=== PATIENT | female | born 1985 | race African-American/Black ===

== ENCOUNTER 2016-11-11 08:00 | Outpatient (RCR) ==
[2014-12-18 11:11] VITALS: BMI 28.6
--- NOTE | 2016-10-25 14:43 | RS.OPPTEV2 ---
Date of Note: 10/23/16 Visit #: 1 Date of Evaluation: 10/23/16 Payer Source: Medicaid Treatment Diagnosis: Thoracic Outlet Syndrome, tingling and numbness into the UE 's. History of Condition/Mechanism of Injury:: Patient reports having tingling in her hands for a few months. Prior Level of Function.....Patient was independent with: ADL's, Self Care, Work /Vocation, Caregiving, Ambulation/Mobility, Community Integration/Access Functional Limitations: ADL's, Reaching, Pushing, Pulling, Lifting, Carrying Current Subjective/complaints:: Patient reports having symptoms in the UE's for several months. States her symptoms are not constant. States they are more common with driving, lifting, using her arms above her head. Denies any tingling or numbness in the UE's when trying to sleep. Reports she is right hand dominant. Symptoms are equal in the UE's. Reports weakness in her hands at times. Treatment Side (optional): Bilateral Medical History Medical History: Unremarkable Smoking Status: Former smoker Hx Home Medications: None Patient's Goals: Her goal is to get relief of UE symptoms. Pain Assessment - Pain Description Pain Location: neck Current Pain Intensity: 4/10 Worst Pain Intensity: 8/10 Functional Outcome Measure Neck Disability Index: 26 - G Codes & Severity Modifier G Codes & Modifier: NA Source of G Code score: NA Observation - Observation Posture: Forward Head, Rounded Shoulders, Decreased Cervical Lordosis Handedness: Right - ROM Comments: Cervical AROM is WFL's, Bilateral UE AROM is WFL's with reports of tingling in the hands with prolonged position. - Special Tests Thoracic Outlet Test: Positive Left (Orville Test), Positive Right Manufacturing Assembler Strength Left Hand Manufacturing Assembler Strength: 65 lbs. Right Hand Manufacturing Assembler Strength: 78 lbs. Dynamometer Testing Position: 2nd Position Palpation Comments:: Reports tenderness along middle to lower cervical spine with palpation. Reports no tenderness with palpation to upper traps. She does demonstrates moderate muscle tone in the upper traps. Sensation - Sensation Comments: At rest, prior to Special Tests, sensation is intact without tingling or numbness in the UE's. Additional Comments: Additional Comments: Adson's Test positive bilaterally. Interventions - Exercise/Activities/Manual Therapy Exercises/Activities: Patient instructed in stretching to ulnar nerve, median nerve, and radial nerve. Also given scalene stretch and thoracic extension with hands behind head. Manual Therapy: NA HOME EXERCISE PROGRAM: stretching to ulnar nerve, median nerve, and radial nerve. Also given scalene stretch and thoracic extension with hands behind head. - Charges Total Direct Minutes: 42 mins Total Treatment Time: 42 mins Procedures billed for this date of service:: EVAL Assessment Assessment: Patient presents to therapy with a diagnosis of Thoracic Outlet Syndrome. She presents with positive Orville and Adson's tests bilaterally. She demonstrates moderate increased muscle tone in the upper traps. She reports tingling in the hands with many daily activities such as driving and activities that involve reaching overhead or lifting. She demonstrates potential to get some relief of symptoms with thorough stretching, postural strengthening , and education to reduce and manage her symptoms. Patient Education: Education of diagnosis, Body/Joint mechanics, Home Exercise Program, Home Safety, Activity Modification, Education of Plan of Care Rehab Potential: Good Short Term Goals Goal #1: Pt to demonstrate good performance of stretching exercises. Goal to be met by: 11/01/16 Goal #2: Patient to demonstrate good postural awareness. Goal to be met by: 11/08/16 Goal #3: Muscle tone in bilateral upper traps decreased to minimal. Goal to be met by: 11/08/16 [facility] Home Goals Goal #1: Pt knows HEP and to continue w/ exercises to maintain level at discharge. Goal to be met by: 11/29/16 Goal #2: Score on Neck disability index improved to 10. Goal to be met by: 11/29/16 Goal #3: Pt able to drive community distances without tingling/numbness in UE's. Goal to be met by: 11/29/16 Goal #4: Use UE's for reaching/lifting with only occasional onset of symptoms. Goal to be met by: 11/29/16 Plan - Treatment to be Provided Procedures: Therapeutic Exercises, Therapeutic Activity, Manual Therapy, Patient Education Modalities: Electrical Stimulation, Ultrasound/Phonophoresis, Class IV Laser, Cryotherapy, Hot Packs, Mechanical Traction (cervical spine) - Treatment Plan Frequency: 3 X week Duration: 4 weeks ORDER # VISITS AND/OR THROUGH DATE: 11/29/16 - Treatment Code (1) Thoracic outlet syndrome Comments: G54.0 (2) Neck pain Comments: M54.2 (3) Numbness and tingling in both hands Comments: R20.2
--- NOTE | 2016-10-25 16:47 | RS.OPPTDN ---
Subjective Date of Note: 10/25/16 Visit #: 2 Date of Evaluation: 10/23/16 Payer Source: Medicaid Treatment Diagnosis: Thoracic Outlet Syndrome, tingling and numbness into the UE 's. Current Subjective/complaints:: Patient says she has been trying to perform stretches. Says neck pain is bilateral and tingling to both hands. C/o being tired from work. Pain Assessment - Pain Description Pain Location: neck Current Pain Intensity: 12/23 - Treatment Modality: Ultrasound Parameters/Method Applied: 1.5 w/cm2 continuous after traction to bilateral UT x 10 mins Patient Position: Sitting - Heat/Cryotherapy Treatment: Hot Pack (cervical x 20 mins supine) - Traction Treatment Method: Mechanical, Intermittent, Cervical Patient Position: Supine Amount of Force Applied: 13 Hold Time: 25 Rest Time: 5 Duration of treatment: 10 Traction Treatment Comment: 2 steps Interventions - Exercise/Activities/Manual Therapy Exercises/Activities: Reviewed HEP and explained traction Manual Therapy: NA HOME EXERCISE PROGRAM: stretching to ulnar nerve, median nerve, and radial nerve. Also given scalene stretch and thoracic extension with hands behind head. Instructed in door way stretch for pec minor. - Charges Total Direct Minutes: 12 Total Treatment Time: 42 Procedures billed for this date of service:: hp, u/s, mechanical traction, Assessment: Patient experienced relief today during and immediately following treatment. Traction was set low and will increase gradually to ease radicular symptoms. Patient Education: Education of diagnosis, Body/Joint mechanics, Home Exercise Program, Home Safety, Activity Modification, Education of Plan of Care Patient demonstrates compliance with HEP?: Yes Short Term Goals Goal #1: Pt to demonstrate good performance of stretching exercises. Goal to be met by: 11/01/16 Goal #2: Patient to demonstrate good postural awareness. Goal to be met by: 11/08/16 Goal #3: Muscle tone in bilateral upper traps decreased to minimal. Goal to be met by: 11/08/16 Shelter Goals Goal #1: Pt knows HEP and to continue w/ exercises to maintain level at discharge. Goal to be met by: 11/29/16 Goal #2: Score on Neck disability index improved to 10. Goal to be met by: 11/29/16 Goal #3: Pt able to drive community distances without tingling/numbness in UE's. Goal to be met by: 11/29/16 Goal #4: Use UE's for reaching/lifting with only occasional onset of symptoms. Goal to be met by: 11/29/16 Plan PLAN OF CARE EXPIRES ON:: 11/29/16 ORDER # VISITS AND/OR THROUGH DATE: 11/29/16 PLAN: Continue Plan of Care
--- NOTE | 2016-10-29 11:14 | RS.OPPTDN ---
Subjective Date of Note: 10/29/16 Visit #: 3 Date of Evaluation: 10/23/16 Payer Source: Medicaid Treatment Diagnosis: Thoracic Outlet Syndrome, tingling and numbness into the UE 's. Current Subjective/complaints:: Patient says traction felt good and she is happy to have it again to improve her symptoms. She says today she is only hurting at the L upper neck (points just lateral to the C4/C5 region. Pain Assessment - Pain Description Pain Location: neck Current Pain Intensity: does not rate, but says "not bad" - Treatment Modality: Ultrasound Parameters/Method Applied: continuous @ 1.5 w/cm2 x 10 mins to the L lower cerv paraspinals AFTER traction Patient Position: Sitting - Heat/Cryotherapy Treatment: Hot Pack (cervical in supine x 20 mins ) - Traction Treatment Method: Mechanical, Intermittent, Cervical Patient Position: Supine Amount of Force Applied: 15 Hold Time: 25 Rest Time: 5 Duration of treatment: 15 Traction Treatment Comment: 2 steps Interventions - Exercise/Activities/Manual Therapy Exercises/Activities: Reviewed HEP Manual Therapy: NA HOME EXERCISE PROGRAM: stretching to ulnar nerve, median nerve, and radial nerve. Also given scalene stretch and thoracic extension with hands behind head. Instructed in door way stretch for pec minor. - Charges Total Direct Minutes: 10 Total Treatment Time: 45 Procedures billed for this date of service:: hp, u/s, mechanical traction Assessment: Patient appears to luna traction well and remains pleasant about improving symptoms with PT and HEP. Patient Education: Education of diagnosis, Body/Joint mechanics, Home Exercise Program, Home Safety, Activity Modification, Education of Plan of Care Patient demonstrates compliance with HEP?: Yes Short Term Goals Goal #1: Pt to demonstrate good performance of stretching exercises. Goal to be met by: 11/01/16 Progress towards Goal:: Progressing Goal #2: Patient to demonstrate good postural awareness. Goal to be met by: 11/08/16 Progress towards Goal:: Progressing Goal #3: Muscle tone in bilateral upper traps decreased to minimal. Goal to be met by: 11/08/16 [facility] Goals Goal #1: Pt knows HEP and to continue w/ exercises to maintain level at discharge. Goal to be met by: 11/29/16 Goal #2: Score on Neck disability index improved to 10. Goal to be met by: 11/29/16 Goal #3: Pt able to drive community distances without tingling/numbness in UE's. Goal to be met by: 11/29/16 Goal #4: Use UE's for reaching/lifting with only occasional onset of symptoms. Goal to be met by: 11/29/16 Plan PLAN OF CARE EXPIRES ON:: 11/29/16 ORDER # VISITS AND/OR THROUGH DATE: 11/29/16 PLAN: Continue Plan of Care
--- NOTE | 2016-10-30 14:00 | RS.OPPTDN ---
Subjective Date of Note: 10/30/16 Visit #: 4 Date of Evaluation: 10/23/16 Payer Source: Medicaid Treatment Diagnosis: Thoracic Outlet Syndrome, tingling and numbness into the UE 's. Current Subjective/complaints:: Patient asks to increase traction poundage since it had helped yesterday. She says she is having less tightness to her neck. Pain Assessment - Pain Description Pain Location: neck Current Pain Intensity: does not rate, but says "not bad" - Treatment Modality: Ultrasound Parameters/Method Applied: continuous @ 1.5 w/cm2 x 12 mins to bilateral UT, mostly to the L C4/C5 paraspinals Patient Position: Sitting - Traction Treatment Method: Mechanical, Intermittent, Cervical Patient Position: Supine Amount of Force Applied: 17 Hold Time: 25 Rest Time: 5 Duration of treatment: 20 Traction Treatment Comment: 2 steps, increased 2 # due to request Interventions - Exercise/Activities/Manual Therapy Exercises/Activities: Reviewed HEP Manual Therapy: NA HOME EXERCISE PROGRAM: stretching to ulnar nerve, median nerve, and radial nerve. Also given scalene stretch and thoracic extension with hands behind head. Instructed in door way stretch for pec minor. - Charges Total Direct Minutes: 12 Total Treatment Time: 32 Procedures billed for this date of service:: u/s, mechanical traction Assessment: Patient arrived 30 mins late. Abbreviated session today. Patient experiencing relief with traction and eager to continue to progress treatment. Patient Education: Education of diagnosis, Body/Joint mechanics, Home Exercise Program, Home Safety, Activity Modification, Education of Plan of Care Patient demonstrates compliance with HEP?: Yes Short Term Goals Goal #1: Pt to demonstrate good performance of stretching exercises. Goal to be met by: 11/01/16 Progress towards Goal:: Progressing Goal #2: Patient to demonstrate good postural awareness. Goal to be met by: 11/08/16 Progress towards Goal:: Progressing Goal #3: Muscle tone in bilateral upper traps decreased to minimal. Goal to be met by: 11/08/16 Correction Goals Goal #1: Pt knows HEP and to continue w/ exercises to maintain level at discharge. Goal to be met by: 11/29/16 Goal #2: Score on Neck disability index improved to 10. Goal to be met by: 11/29/16 Goal #3: Pt able to drive community distances without tingling/numbness in UE's. Goal to be met by: 11/29/16 Goal #4: Use UE's for reaching/lifting with only occasional onset of symptoms. Goal to be met by: 11/29/16 Plan PLAN OF CARE EXPIRES ON:: 11/29/16 ORDER # VISITS AND/OR THROUGH DATE: 11/29/16 PLAN: Continue Plan of Care
--- NOTE | 2016-11-01 13:25 | RS.CXNS ---
Date of scheduled appointment: 11/01/16 Type: Cancel Reason for Cancel/NS: "something came up"
--- NOTE | 2016-11-04 16:26 | RS.OPPTDN ---
Subjective Date of Note: 11/04/16 Visit #: 5 Date of Evaluation: 10/23/16 Payer Source: Medicaid Treatment Diagnosis: Thoracic Outlet Syndrome, tingling and numbness into the UE 's. Current Subjective/complaints:: Patient reports traction is helping. Reports left side of neck is more sore today. States she is working on HEP. Following treatment patient reports she liked the increase in weight with cervical traction. Pain Assessment - Pain Description Pain Location: neck Current Pain Intensity: mild to mod soreness - Treatment Modality: Ultrasound Parameters/Method Applied: [id number] at 1.5w/cm2 to the bilateral cervical paraspinals and upper traps prior to traction. Patient Position: Sitting - Heat/Cryotherapy Treatment: Hot Pack ([id number] to the cervical paraspinals prior to US and TX. Patient in supine. ) - Traction Treatment Method: Mechanical, Intermittent, Cervical Patient Position: Supine Amount of Force Applied: 20# Hold Time: 20sec Rest Time: 5sec Duration of treatment: 20mins Interventions - Exercise/Activities/Manual Therapy Exercises/Activities: NA Manual Therapy: NA HOME EXERCISE PROGRAM: stretching to ulnar nerve, median nerve, and radial nerve. Also given scalene stretch and thoracic extension with hands behind head. Instructed in door way stretch for pec minor. - Charges Total Direct Minutes: 14mins Total Treatment Time: 54mins Procedures billed for this date of service:: HP, US, TX mechanical Assessment: Patient reports improvement with traction. Short Term Goals Goal #1: Pt to demonstrate good performance of stretching exercises. Goal to be met by: 11/01/16 Progress towards Goal:: Progressing Goal #2: Patient to demonstrate good postural awareness. Goal to be met by: 11/08/16 Progress towards Goal:: Progressing Goal #3: Muscle tone in bilateral upper traps decreased to minimal. Goal to be met by: 11/08/16 [facility] Goals Goal #1: Pt knows HEP and to continue w/ exercises to maintain level at discharge. Goal to be met by: 11/29/16 Goal #2: Score on Neck disability index improved to 10. Goal to be met by: 11/29/16 Goal #3: Pt able to drive community distances without tingling/numbness in UE's. Goal to be met by: 11/29/16 Goal #4: Use UE's for reaching/lifting with only occasional onset of symptoms. Goal to be met by: 11/29/16 Plan PLAN OF CARE EXPIRES ON:: 11/29/16 ORDER # VISITS AND/OR THROUGH DATE: 11/29/16 PLAN: Continue Plan of Care
--- NOTE | 2016-11-06 16:31 | RS.OPPTDN ---
Subjective Date of Note: 11/06/16 Visit #: 6 Date of Evaluation: 10/23/16 Payer Source: Medicaid Treatment Diagnosis: Thoracic Outlet Syndrome, tingling and numbness into the UE 's. Current Subjective/complaints:: Patient reports she is feeling much better. States she has stiffness in the neck but no pain or radicular symptoms in the UE 's. States increase in weight with traction has helped. Pain Assessment - Pain Description Pain Location: neck Current Pain Intensity: mild - Treatment Modality: Ultrasound Parameters/Method Applied: [id number] at 1.5w/cm2 to the bilateral cervical paraspinals. Patient Position: Supine - Heat/Cryotherapy Treatment: Hot Pack ([id number] to the cervical spine prior to US and TX. Patient in supine. ) - Traction Treatment Method: Mechanical, Intermittent, Cervical Patient Position: Supine Amount of Force Applied: 21# Hold Time: 30sec Rest Time: 5sec Duration of treatment: 20mins Interventions - Exercise/Activities/Manual Therapy Exercises/Activities: NA Manual Therapy: NA HOME EXERCISE PROGRAM: stretching to ulnar nerve, median nerve, and radial nerve. Also given scalene stretch and thoracic extension with hands behind head. Instructed in door way stretch for pec minor. - Charges Total Direct Minutes: 10mins Total Treatment Time: 50mins Procedures billed for this date of service:: HP, US, TX mechanical Assessment: Patient responding well to traction. Reports no radicular symptoms today. Short Term Goals Goal #1: Pt to demonstrate good performance of stretching exercises. Goal to be met by: 11/01/16 Progress towards Goal:: Progressing Goal #2: Patient to demonstrate good postural awareness. Goal to be met by: 11/08/16 Progress towards Goal:: Progressing Goal #3: Muscle tone in bilateral upper traps decreased to minimal. Goal to be met by: 11/08/16 Progress towards Goal:: Progressing [facility] Home Goals Goal #1: Pt knows HEP and to continue w/ exercises to maintain level at discharge. Goal to be met by: 11/29/16 Progress towards goal: Progressing Goal #2: Score on Neck disability index improved to 10. Goal to be met by: 11/29/16 Goal #3: Pt able to drive community distances without tingling/numbness in UE's. Goal to be met by: 03/17/17 Progress towards goal: Progressing Goal #4: Use UE's for reaching/lifting with only occasional onset of symptoms. Goal to be met by: 11/29/16 Plan PLAN OF CARE EXPIRES ON:: 11/29/16 ORDER # VISITS AND/OR THROUGH DATE: 11/29/16 PLAN: Continue Plan of Care
--- NOTE | 2016-11-11 09:49 | RS.OPPTDN ---
Subjective Date of Note: 11/11/16 Visit #: 7 Date of Evaluation: 10/23/16 Payer Source: Medicaid Treatment Diagnosis: Thoracic Outlet Syndrome, tingling and numbness into the UE 's. Current Subjective/complaints:: Patient says treatment has really helped. C/o stiffness today. Pain Assessment - Pain Description Pain Location: neck Current Pain Intensity: mild - Treatment Modality: Ultrasound Parameters/Method Applied: 1.5 w/cm2 continuous x 10 mins to bilateral UT after traction - Heat/Cryotherapy Treatment: Hot Pack (20 mins cervical in supine) - Traction Treatment Method: Mechanical, Intermittent, Cervical Patient Position: Supine Amount of Force Applied: 22-23 Hold Time: 30 Rest Time: 5 Duration of treatment: 20 Interventions - Exercise/Activities/Manual Therapy Exercises/Activities: Patient is performing them at home. Manual Therapy: NA HOME EXERCISE PROGRAM: stretching to ulnar nerve, median nerve, and radial nerve. Also given scalene stretch and thoracic extension with hands behind head. Instructed in door way stretch for pec minor. - Charges Total Direct Minutes: 10 Total Treatment Time: 50 Procedures billed for this date of service:: hp, mechanical traction, u/s Assessment: Patient presents with stiffness to the cervical spine. Pain is isolated to this same location. She is responding well to traction as it progresses, she is having less to no radicular symptoms. Patient Education: Education of diagnosis, Body/Joint mechanics, Home Exercise Program, Home Safety, Activity Modification, Education of Plan of Care Patient demonstrates compliance with HEP?: Yes Short Term Goals Goal #1: Pt to demonstrate good performance of stretching exercises. Goal to be met by: 11/01/16 Progress towards Goal:: Progressing Goal #2: Patient to demonstrate good postural awareness. Goal to be met by: 11/08/16 Progress towards Goal:: Progressing Goal #3: Muscle tone in bilateral upper traps decreased to minimal. Goal to be met by: 11/08/16 Progress towards Goal:: Progressing Manager Reporting Goals Goal #1: Pt knows HEP and to continue w/ exercises to maintain level at discharge. Goal to be met by: 11/29/16 Progress towards goal: Progressing Goal #2: Score on Neck disability index improved to 10. Goal to be met by: 11/29/16 Goal #3: Pt able to drive community distances without tingling/numbness in UE's. Goal to be met by: 11/29/16 Progress towards goal: Progressing Goal #4: Use UE's for reaching/lifting with only occasional onset of symptoms. Goal to be met by: 11/29/16 Plan PLAN OF CARE EXPIRES ON:: 11/29/16 ORDER # VISITS AND/OR THROUGH DATE: 11/29/16 PLAN: Continue Plan of Care
== END 2016-11-12 ==
PROVIDERS: ATTEND Surgery Vascular Surgery
DX: G54.0 Brachial plexus disorders (principal)

== ENCOUNTER 2016-11-13 15:09 | Outpatient (RCR) ==
[2014-12-18 11:11] VITALS: BMI 28.6
--- NOTE | 2016-11-13 16:17 | RS.QUICKDC ---
Discharge from PT Date of Discharge: 08/29/15 Number of Visits: 8 Reason for Discharge: Rehab goals met,reports stifness in the neck ,but no soreness or radiculopathy present today.She has good understanding of HEP,good postural awareness.She is aware of D/C plan today.
== END 2016-12-13 ==
PROVIDERS: ATTEND Surgery Vascular Surgery
DX: G54.0 Brachial plexus disorders (principal)

== ENCOUNTER 2017-05-11 09:33 | Emergency (ER) ==
[2017-05-11 09:44] VITALS: BP 118/79; TEMP 98.8; BMI 25.9
--- NOTE | 2017-05-11 09:46 | ED.PDOC ---
General ED Provider: Dr. CEDRICK PÉREZ JR Chief Complaint: Earache Stated Complaint: works at [employer] and has seen several pt with same sx-- cold sx started--sl hoarseness--sl cough and nasal sx--has bilat ear pain[ End ] 98.8 95 20 96% 118/79 5/10mucinex/otc medsEARACHE COUGH RUNNY NOSE Time Seen by Physician: 09:46 Mode of Arrival: Walk-In Information Source: Patient Exam Limitations: No limitations Primary Care Provider: LESLIE BEGUM Nursing and Triage Documentation Reviewed and Agree: No Review of Systems - Review Of Systems Constitutional: Reports: Malaise Eyes: Reports: No symptoms Ears, Nose, Mouth, Throat: Reports: Ear pain, Nose pain, Nose discharge, Throat pain Respiratory: Reports: Cough Cardiac: Reports: No symptoms GI: Reports: No symptoms : Reports: No symptoms Musculoskeletal: Reports: No symptoms Skin: Reports: No symptoms Neurological: Reports: No symptoms Endocrine: Reports: No symptoms Hematologic/Lymphatic: Reports: No symptoms All Other Systems: Other Past Medical History - Past Medical History Previously Healthy: Yes Endocrine: Reports: None Cardiovascular: Reports: None Respiratory: Reports: None Hematological: Reports: None Gastrointestinal: Reports: None Genitourinary: Reports: None Neuro/Psych: Reports: None, Anxiety (XANAX BUPROPRION) Musculoskeletal: Reports: None Cancer: Reports: None - Surgical History General Surgical History: Reports: - Family History Family History: Reports: Unknown - Social History Smoking Status: Never smoker Hx Substance Use: No Alcohol Screening: Occasionally Physical Exam - Physical Exam Appearance: Well-appearing Ill-appearing: Mild Pain Distress: Mild Eyes: GILBERTO, EOMI, Conjunctiva clear ENT: Ears normal, Nose normal, Oropharynx normal Neck: Supple Respiratory: Airway patent, Breath sounds clear, Breath sounds equal, Respirations nonlabored Cardiovascular: RRR, Pulses normal, No rub, No murmur GI/: Soft, Nontender, No masses, Bowel sounds normal, No Organomegaly Musculoskeletal: Normal strength, ROM intact, No edema, No calf tenderness Skin: Warm, Dry, Normal color Neurological: Sensation intact, Motor intact, Reflexes intact, Cranial nerves intact, Alert, Oriented Psychiatric: Affect appropriate, Mood appropriate Critical Care Note - Critical Care Note Total Time (mins): 0 Departure - Departure Time of Disposition: 09:53 Disposition: HOME SELF-CARE Discharge Problem: Ear problem, Respiratory tract infection Allergic rhinitis Qualifiers: Chronicity: acute Allergic rhinitis trigger: pollen Allergic rhinitis seasonality: seasonal Qualifier Code: (J30.1) Allergic rhinitis due to pollen Instructions: Upper Respiratory Infection (ED) Condition: Good Pt referred to PMD for follow-up: Yes Additional Instructions: KEFLEX ANTIBIOTIC CLARITIN D OR SIMILAR ANTIHISTAMINE DECONGESTANT FOR CONGESTION ROBITUSSIN AC FOR COUGH ONLY IF NEEDED NAPROSYN FOR DISCOMFORT Prescriptions: Cephalexin [Keflex] 500 mg PO QID #40 capsule Guaifenesin/Codeine Phosphate [Robitussin AC Syrup] 10 ml PO Q6H PRN #240 ml PRN Reason: Cough Loratadine/Pseudoephedrine [Claritin-D 12 Hour Tablet] 1 each PO BID PRN #60 tab.er.12h PRN Reason: Allergy Symptoms Allergies/Adverse Reactions: Allergies No Known Allergies Allergy (Verified 05/11/17 09:40) Home Medications: Ambulatory Orders Alprazolam [Xanax] 0.25 mg PO BID 05/11/17 Bupropion HCl [Bupropion HCl Sr] 150 mg PO BEDTIME 05/11/17 Cephalexin [Keflex] 500 mg PO QID #40 capsule 05/11/17 Guaifenesin/Codeine Phosphate [Robitussin AC Syrup] 10 ml PO Q6H PRN #240 ml Loratadine/Pseudoephedrine [Claritin-D 12 Hour Tablet] 1 each PO BID PRN #60 tab.er.12h 05/11/17
== END 2017-05-11 10:50 | disposition home or self-care (01) ==
LOC: ED 09:33
DX: J06.9 Acute upper respiratory infection, unspecified (principal); J30.1 Allergic rhinitis due to pollen; H92.03 Otalgia, bilateral
CPT/HCPCS: 87651; 87880; 99283

== ENCOUNTER 2018-01-30 12:32 | Outpatient (CLI) ==
--- NOTE | 2018-01-30 15:16 | MRI ---
EXAM: MRI brain without and with IV contrast. DATE: 01/30/2015. HISTORY: Intractable headaches. Ear pain, dizziness. TECHNIQUE: Sagittal T1W, axial T2W, axial FLAIR, axial T1W pre and postcontrast, and axial DWI seque ores brain were obtained using 1.5 [place] magnet. Additional coronal and axial T1W sequences before a nd after IV contrast, and axial T2W thin-slice images through the brainstem and IACs were obtained. CONTRAST: Omniscan - 17 ml IV. COMPARISON: C-spine series 13 August 2016. FINDINGS: The ventricles and cisterns are normal in size and configuration. Some frontal and pariet al lobe sulci near the superior vertex of the brain are somewhat prominent. No midline shift, hernia tion, or loculated extra-axial fluid collection is apparent. No acute infarct, hemorrhage or enhanci ng intra-axial neoplasm is visible. A 6.5 x 6.6 x 5.5 mm focus in the region of the pineal gland jak ears to have small enhancing focus (2 x 3 mm) posteriorly. No abnormal enhancement is seen in the br ain, meninges, or dura. The cano-white matter differentiation is normal. The cerebellopontine angle s, brainstem, and visible cervical spinal cord are normal. Cerebellar tonsils extend near the inferi or margin of the foramen magnum. There is no Chiari 1 malformation. The pituitary gland is small in size. Corpus callosum is normal in size and configuration. A small branching vessels in the right thalamus is consistent with venous angioma. Flow voids are present in the major intracranial arterie s and in the dural venous sinuses. No aneurysm, AVM, or dural venous sinus thrombosis is apparent. The optic chiasm, optic tracts, and optic nerves are normal. The orbits are normal. There is no ac deshawn sinusitis. No upper neck mass or lymphadenopathy is detected. No calvarial neoplasm or acute f racture is evident. The 5th cranial nerves are symmetric in size, without abnormal enhancement. Meckel's cave and the ca vernous sinus are normal bilaterally. No the without definitive trigeminal nerve displacement or com pression is apparent. Thin slice, high-resolution images through the IACs and brainstem reveal no abnormal enhancement or n eoplasm involving the 7th/8th cranial nerve complexes. The cochlea, semicircular canals, and vestibu le are symmetric and normal bilaterally. No abnormal enlargement of the vestibular aqueduct is seen on either side. The mastoid air cells appear normal. No cholesteatoma or mastoiditis is apparent. No definitive cranial nerve displacement or compression. IMPRESSIONS: 1. No acute infarct, hemorrhage, intra-axial mass or hydrocephalus. 2. Normal bilateral 7th/8th CN, IACs and temporal bones. 3. 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 4. Minor cerebral involutional change / atrophy. Unexpected findin. Small pineal gland cyst with thin internal septation and possible peripheral mural nodule vs volume averaging with adjacent vessel. Recommend: Short interval follow-up is 6 mon ths to exclude a growing lesion..
== END 2018-01-30 12:33 | disposition home or self-care (01) ==
LOC: RAD 12:32
PROVIDERS: ATTEND Family Medicine
DX: R42 Dizziness and giddiness (principal); R51 Headache; H92.09 Otalgia, unspecified ear
CPT/HCPCS: 36415; 82565

== ENCOUNTER 2018-02-10 08:10 | Outpatient (POV) | END 2018-02-10 17:00 | LOC: OUTPT 08:10 | PROVIDERS: ATTEND Otolaryngology | DX: H91.90 Unspecified hearing loss, unspecified ear (principal) ==

== ENCOUNTER 2018-03-20 15:19 | Outpatient (CLI) ==
[2018-03-21 08:19] VITALS: BMI 30.9
== END 2018-03-20 15:20 | disposition home or self-care (01) ==
LOC: RHC-LAB 15:19
PROVIDERS: ATTEND Nurse Practitioner Family
DX: R35.0 Frequency of micturition (principal)
CPT/HCPCS: 81001; 87086; 87186

== ENCOUNTER 2018-03-21 03:44 | Observation (INO) | payer MEDICAID, OTHER ==
[2018-03-21] MEDS ORDERED: SODIUM CHLORIDE 500 ML IV STA (04:18)
--- NOTE | 2018-03-21 04:22 | ED.PDOC ---
General ED Provider: Dr. MARVIN FUENTES Chief Complaint: Urinary Problem Stated Complaint: Patient been diagnosed with UTI, since yesterday, she is having fever, low abdominal pain, she got Rocephine shot, but still having fever. not able to urinate. Time Seen by Physician: 04:20 Mode of Arrival: Walk-In Information Source: Patient Primary Care Provider: LESLIE BEGUM Nursing and Triage Documentation Reviewed and Agree: Yes Does patient meet sepsis criteria?: Yes If yes, has appropriate treatment been initiated?: No System Inflammatory Response Syndrome: Temp 101F or Greater, Pulse >90 BPM Sepsis Protocol: For patient's 13 years and over: Temp is 96.8 and below OR 101 and greater Pulse >90 BPM Resp >20/minute Acutely Altered Mental Status Are patient's symptoms suggestive of a new infection, such as: -Pneumonia -Skin, Soft Tissue -Endocarditis -UTI -Bone, Joint Infection -Implantable Device -Acute Abdominal Infection -Wound Infection -Meningitis -Blood Stream Catheter Infection -Unknown Complaint Exam - UTI Female Complaint/Exam Patient Complains of: Reports: Painful urination Symptoms Are: Still present Timing: Constant Initial Severity: Moderate Current Severity: Moderate Location of Pain: Reports: Suprapubic Associated Signs and Symptoms: Reports: Fever, Chills, Flank pain. Denies: Dyspareunia, Vaginal discharge Related Surgical History: Reports: None CVA Tenderness: No Suprapubic Tenderness: Yes Differential Diagnoses: Cystitis Review of Systems - Review Of Systems Constitutional: Reports: Fever, Malaise, Weakness Eyes: Reports: No symptoms Ears, Nose, Mouth, Throat: Reports: No symptoms Respiratory: Reports: No symptoms Cardiac: Reports: No symptoms GI: Reports: No symptoms : Reports: Burning, Dysuria, Discharge Musculoskeletal: Reports: No symptoms Skin: Reports: No symptoms Neurological: Reports: No symptoms Endocrine: Reports: No symptoms Hematologic/Lymphatic: Reports: No symptoms All Other Systems: Reviewed and Negative Past Medical History - Past Medical History Previously Healthy: Yes Endocrine: Reports: None Cardiovascular: Reports: None Respiratory: Reports: None Hematological: Reports: None Gastrointestinal: Reports: None Genitourinary: Reports: None Neuro/Psych: Reports: None, Anxiety (XANAX BUPROPRION) Musculoskeletal: Reports: None Cancer: Reports: None Last Menstrual Period: 03/04/18 - Surgical History General Surgical History: Reports: - Family History Family History: Reports: Unknown - Social History Smoking Status: Former smoker Hx Substance Use: No Alcohol Screening: Occasionally - Immunizations Tetanus Shot up to Date: Yes Physical Exam - Physical Exam Appearance: Well-appearing, Ill-appearing, No pain distress, Well-nourished Eyes: GILBERTO, EOMI, Conjunctiva clear ENT: Ears normal, Nose normal, Oropharynx normal Respiratory: Airway patent, Breath sounds clear, Breath sounds equal, Respirations nonlabored Cardiovascular: RRR, Pulses normal, No rub, No murmur GI/: Soft, No masses, Bowel sounds normal, No Organomegaly, Tender Musculoskeletal: Normal strength, ROM intact, No edema, No calf tenderness Skin: Warm, Dry, Normal color Neurological: Sensation intact, Motor intact, Reflexes intact, Cranial nerves intact, Alert, Oriented Psychiatric: Affect appropriate, Mood appropriate Interpretation - Radiology Interpretation Radiology Interpretation By: Radiologist Radiology Results: Positive Exam Interpreted: CT Scan Critical Care Note - Critical Care Note Total Time (mins): 30 Course - Course Hematology/Chemistry: 03/21/18 04:40 03/21/18 04:40 Orders, Labs, Meds: Lab Review 03/21/18 03/21/18 03/21/18 04:15 04:40 04:40 WBC 10.41 H RBC 3.84 L Hgb 9.6 L Hct 29.8 L MCV 77.6 L MCH 25.0 L MCHC 32.2 RDW Coeff of [place] 15.8 H Plt Count 207 Immature Gran % (Auto) 0.3 Neut % (Auto) 76.0 Lymph % (Auto) 12.4 [place] % (Auto) 11.0 H Eos % (Auto) 0.1 Baso % (Auto) 0.2 Immature Gran # (Auto) 0.0 Neut # (Auto) 7.9 H Lymph # (Auto) 1.3 [place] # (Auto) 1.2 Eos # (Auto) 0.0 Baso # (Auto) 0.0 Sodium 135 L Potassium 3.6 Chloride 105 Carbon Dioxide 21 Anion Gap 12.6 BUN 8 Creatinine 0.85 Estimated GFR (MDRD) 94.00 BUN/Creatinine Ratio 9.41 Glucose 121 H Lactic Acid Calcium 9.0 Total Bilirubin 0.8 AST 19 ALT 16 Alkaline Phosphatase 98 Total Protein 7.2 Albumin 3.5 Globulin 3.7 Albumin/Globulin Ratio 0.95 Procalcitonin Serum , Qual Urine Color Dark Urine Clarity Slightly Urine pH 6.0 Ur Specific [place] 1.015 Urine Protein 2+ Urine Glucose (UA) Negative Urine Ketones Trace Urine Blood 1+ Urine Nitrite Negative Urine Bilirubin 1+ Urine Urobilinogen 1.0 Ur Leukocyte Esterase 1+ Urine Microscopic RBC 10-20 Urine Microscopic WBC 30-50 Ur Squamous Epith Cells 20-30 Urine Bacteria 1+ Urine Mucus 1+ 03/21/18 03/21/18 03/21/18 04:40 04:40 04:40 WBC RBC Hgb Hct MCV MCH MCHC RDW Coeff of [place] Plt Count Immature Gran % (Auto) Neut % (Auto) Lymph % (Auto) [place] % (Auto) Eos % (Auto) Baso % (Auto) Immature Gran # (Auto) Neut # (Auto) Lymph # (Auto) [place] # (Auto) Eos # (Auto) Baso # (Auto) Sodium Potassium Chloride Carbon Dioxide Anion Gap BUN Creatinine Estimated GFR (MDRD) BUN/Creatinine Ratio Glucose Lactic Acid 5.2 Calcium Total Bilirubin AST ALT Alkaline Phosphatase Total Protein Albumin Globulin Albumin/Globulin Ratio Procalcitonin 0.11 Serum , Qual Negative Urine Color Urine Clarity Urine pH Ur Specific [place] Urine Protein Urine Glucose (UA) Urine Ketones Urine Blood Urine Nitrite Urine Bilirubin Urine Urobilinogen Ur Leukocyte Esterase Urine Microscopic RBC Urine Microscopic WBC Ur Squamous Epith Cells Urine Bacteria Urine Mucus Orders Category Date Time Status ED IV/MEDIPORT/POWERPORT .ONCE EMERGENCY 03/21/18 04:18 Active BLOOD CULTURE (ED ONLY) Stat LAB 03/21/18 04:40 Received CBC W/ AUTO DIFF Stat LAB 03/21/18 04:40 Completed COMPREHENSIVE METABOLIC PANEL Stat LAB 03/21/18 04:40 Completed LACTIC ACID Stat LAB 03/21/18 04:40 Completed PROCALCITONIN Stat LAB 03/21/18 04:40 Completed SERUM Stat LAB 03/21/18 04:40 Completed URINALYSIS C & S IF INDICATED Stat LAB 03/21/18 04:15 Completed URINE CULTURE Stat LAB 03/21/18 04:15 Received 0.9 % Sodium Chloride [Saline Flush] MEDS 03/21/18 04:18 Ordered 1 syr IVF PRN PRN Ceftriaxone Sodium [Rocephin] MEDS 03/21/18 05:51 Discontinued 1 gm .ROUTE .STK-MED ONE Ceftriaxone Sodium [Rocephin] 1 gm MEDS 03/21/18 05:49 Discontinued 0.9 % Sodium Chloride [Sodium Chloride] 50 ml IV ONCE Meperidine HCl/Pf [Demerol 50 mg/ml Vial] MEDS 03/21/18 04:53 Discontinued 25 mg IVP ONCE STA Ondansetron HCl/Pf [Zofran 4 mg/2 ml] MEDS 03/21/18 04:53 Discontinued 4 mg IVP ONCE STA Sodium Chloride 0.9% [Sodium Chloride] 500 ml MEDS 03/21/18 04:[address] ABDOMEN/PELVIS WO CONTRAST Stat RADS 03/21/18 04:18 Completed Medications Generic Name Dose Route Start Last Admin Trade Name Freq PRN Reason Stop Dose Admin Sodium Chloride 1 syr 03/21/18 04:18 03/21/18 04:44 Saline Flush IVF 1 syr PRN PRN Administration To flush IV Discontinued Medications Generic Name Dose Route Start Last Admin Trade Name Freq PRN Reason Stop Dose Admin Sodium Chloride 500 mls @ 500 mls/hr 03/21/18 04:18 03/21/18 04:46 Sodium Chloride IV 03/21/18 05:17 500 mls/hr BOLUS STA Administration Ceftriaxone Sodium 1 gm/ 50 mls @ 75 mls/hr 03/21/18 05:49 03/21/18 05:54 Sodium Chloride IV 03/21/18 06:28 75 mls/hr ONCE STA Administration Meperidine HCl 25 mg 03/21/18 04:53 03/21/18 05:07 Demerol 50 Mg/Ml Vial IVP 03/21/18 04:54 25 mg ONCE STA Administration Ondansetron HCl 4 mg 03/21/18 04:53 03/21/18 05:05 Zofran 4 Mg/2 Ml IVP 03/21/18 04:54 4 mg ONCE STA Administration Vital Signs: Temp Pulse Resp BP Pulse Ox 03/21/18 06:51 99.6 F 03/21/18 03:45 101.8 F H 117 H 20 124/82 95 Departure - Departure Time of Disposition: 06:58 Disposition: PLACED OBSERVATION Discharge Problem: Urinary tract infectious disease, Pyelonephritis Instructions: Urinary Tract Infection in Women (ED) Condition: Stable Pt referred to PMD for follow-up: Yes IPMP verified?: No Allergies/Adverse Reactions: Allergies No Known Allergies Allergy (Verified 03/21/18 04:03) Home Medications: Ambulatory Orders Alprazolam [Xanax] 0.25 mg PO BID PRN 05/11/17 Bupropion HCl [Bupropion HCl Sr] 150 mg PO BEDTIME 05/11/17 Methocarbamol [Robaxin] 500 mg PO BID PRN #30 tab-cap 01/06/18 Diazepam 2 mg PO 2-3XD PRN #25 tab-cap 02/10/18 Imitrex 25 mg PO DIRECTED PRN 02/10/18 Topiramate [Topamax] 50 mg PO DAILY 02/10/18 Disposition Discussed With: Patient, Family
[2018-03-21] MEDS ORDERED: DEMEROL 50 MG/ML VIAL IVP STA (04:53)
[2018-03-21] MEDS ORDERED: ZOFRAN 4 MG/2 ML IVP STA (04:53)
--- NOTE | 2018-03-21 05:43 | CT ---
EXAM: CT abdomen pelvis without intravenous contrast 03/21/2018. Sagittal and coronal reformatted i mages obtained HISTORY: Pain. Urinary tract infection COMPARISON: None. FINDINGS: The liver, gallbladder, adrenal glands and right kidney show no acute abnormality. There is stranding adjacent to the left kidney and left renal pelvis. Pyelonephritis cannot be excluded du e to the lack of intravenous contrast. The spleen and pancreas show no acute abnormality. There is no bowel obstruction. Normal appendix. Upper normal thickness of the urinary bladder wall. Cystitis not excluded. Mild perivesicular stran ding There is a small quantity of free fluid within the dependent aspect of the pelvis. IMPRESSION: 1. Technically limited examination due to lack of intravenous contrast. Pyelonephritis cannot be exc luded. There is stranding adjacent to the left kidney and left renal pelvis. 2. Upper normal thickness of the urinary bladder wall with mild perivesicular stranding. Cystitis a lso not excluded. 3. Small quantity of free fluid within the pelvis.
[2018-03-21] MEDS ORDERED: ROCEPHIN 1 GM in SODIUM CHLORIDE 50 ML IV STA (05:49)
[2018-03-21] MEDS ORDERED: ROCEPHIN ONE (05:51)
[2018-03-21] MEDS ORDERED: IMITREX PO PRN ×2 (07:23→07:56)
[2018-03-21] MEDS ORDERED: XANAX PO PRN (07:23)
[2018-03-21] MEDS ORDERED: VALIUM PO PRN (07:23)
[2018-03-21] MEDS ORDERED: ROBAXIN PO PRN (07:23)
[2018-03-21 08:19] VITALS: BMI 30.9
[2018-03-21] MEDS: SODIUM CHLORIDE 1,000 ML IV SCH (08:33)
[2018-03-21] MEDS: LOVENOX SUBCUT SCH (11:06)
[2018-03-21] MEDS: MAXIPIME 1 GM in SODIUM CHLORIDE 50 ML IV SCH ×2 (11:06→21:13)
[2018-03-21] MEDS: TOPAMAX PO SCH (11:06)
[2018-03-21] MEDS: DEMEROL 50 MG/ML VIAL IVP SCH ×2 (13:07→20:13)
[2018-03-21] MEDS: ZOFRAN 4 MG/2 ML IVP SCH ×2 (13:08→20:13)
[2018-03-21] MEDS: TYLENOL PO PRN (17:23)
[2018-03-21] MEDS ORDERED: NON-FORMULARY MEDICATION (Bupropion Hcl [Bupropion Hcl Sr] 150 MG) PO SCH (21:00)
[2018-03-21] MEDS: WELLBUTRIN XL PO SCH (21:13)
[2018-03-22] MEDS: SODIUM CHLORIDE 1,000 ML IV SCH ×2 (00:29→12:33)
[2018-03-22] MEDS: ZOFRAN 4 MG/2 ML IVP SCH ×3 (05:08→20:40)
[2018-03-22] MEDS: DEMEROL 50 MG/ML VIAL IVP SCH ×3 (05:09→20:38)
[2018-03-22] MEDS: TYLENOL PO PRN (08:28)
[2018-03-22] MEDS: TOPAMAX PO SCH (09:02)
[2018-03-22] MEDS: LOVENOX SUBCUT SCH (09:02)
[2018-03-22] MEDS: MAXIPIME 1 GM in SODIUM CHLORIDE 50 ML IV SCH ×2 (09:02→20:40)
[2018-03-22] MEDS: WELLBUTRIN XL PO SCH (20:37)
[2018-03-23] MEDS: ZOFRAN 4 MG/2 ML IVP SCH ×2 (05:11→14:29)
[2018-03-23] MEDS: DEMEROL 50 MG/ML VIAL IVP SCH (05:11)
[2018-03-23] MEDS: TOPAMAX PO SCH (09:52)
[2018-03-23] MEDS: LOVENOX SUBCUT SCH (09:52)
[2018-03-23] MEDS: MAXIPIME 1 GM in SODIUM CHLORIDE 50 ML IV SCH (09:52)
[2018-03-23] MEDS ORDERED: DEMEROL 50 MG/ML SYRINGE IVP SCH (13:00)
[2018-03-23 14:27] VITALS: TEMP 98.1
[2018-03-23 19:15] VITALS: BP 108/68
== END 2018-03-23 19:00 | disposition home or self-care (01) ==
LOC: ED 03:44 → MEDSURG B 07:24
PROVIDERS: ADMIT Family Medicine; ATTEND Family Medicine
DX: R30.9 Painful micturition, unspecified (principal); R10.9 Unspecified abdominal pain; R50.9 Fever, unspecified; R11.2 Nausea with vomiting, unspecified; B96.20 Unspecified Escherichia coli [E. coli] as the cause of diseases classified elsewhere
CPT/HCPCS: 36415; 80053; 81001; 83605; 84145; 84703; 85025; 87040; 87086; 96361; 96365; 96375; 99284

== ENCOUNTER 2018-04-06 18:11 | Outpatient (CLI) | END 2018-04-06 18:12 | disposition home or self-care (01) | LOC: LAB 18:11 | PROVIDERS: ATTEND Family Medicine | DX: D64.9 Anemia, unspecified (principal); N39.0 Urinary tract infection, site not specified | CPT/HCPCS: 36415; 81001 ==

== ENCOUNTER 2018-04-16 19:15 | Outpatient (CLI) | END 2018-04-16 19:16 | disposition home or self-care (01) | LOC: LAB 19:15 | PROVIDERS: ATTEND Family Medicine | DX: D64.9 Anemia, unspecified (principal) | CPT/HCPCS: 36415; 82607; 82746; 83540; 83550 ==

== ENCOUNTER 2018-06-03 17:00 | Outpatient (CLI) | END 2018-06-03 17:01 | disposition home or self-care (01) | LOC: LAB 17:00 | PROVIDERS: ATTEND Nurse Practitioner Women's Health | DX: N92.4 Excessive bleeding in the premenopausal period (principal) | CPT/HCPCS: 36415; 81241; 83520; 84439; 84443; 85025; 85240; 85245; 85246; 85610; 85660; 85730; 86900; 86901 ==

== ENCOUNTER 2019-02-23 14:07 | Outpatient (CLI) | END 2019-02-23 14:08 | disposition home or self-care (01) | LOC: RHC-LAB 14:07 | PROVIDERS: ATTEND Nurse Practitioner Family | DX: Z00.00 Encounter for general adult medical examination without abnormal findings (principal); E66.9 Obesity, unspecified | CPT/HCPCS: 36415; 80053; 80061; 84443; 85025 ==

== ENCOUNTER 2019-02-24 08:13 | Outpatient (CLI) | END 2019-02-24 08:14 | disposition home or self-care (01) | LOC: CAR 08:13 | PROVIDERS: ATTEND Nurse Practitioner Family | DX: E66.9 Obesity, unspecified (principal) | CPT/HCPCS: 93005; 93010 ==

== ENCOUNTER 2019-05-11 11:53 | Outpatient (CLI) | END 2019-05-11 11:54 | disposition home or self-care (01) | LOC: RHC-LAB 11:53 | PROVIDERS: ATTEND Nurse Practitioner Family | DX: R80.9 Proteinuria, unspecified (principal) | CPT/HCPCS: 81001; 87086 ==